=== PATIENT | male | born 1940 | race Caucasian/White ===

== ENCOUNTER 2016-10-03 08:38 | Emergency (ER) | payer MEDICARE ==
[~2016-10-03] VITALS: Ht 177.8 cm; Wt 120.5 kg
[~2016-10-03 08:38] MED LIST: IBUP800T28 PO; METF750T2 PO; METO-272 PO; SIMV40TA5 PO; WARF5TAB7 PO; WARF6TAB6 PO
[2016-10-03 08:49] VITALS: BP 129/79; RESP 16; O2SAT 97
--- NOTE | 2016-10-03 10:26 | PCM.EDPN ---
ED Note Date of Service October 03, 2016 ED Attending Statement I signed up for patient immediately on arrival to my shift. I went to the room the patient had eloped prior to being evaluated. Juan Guerra MD October 03, 2016 10:26
== END 2016-10-03 09:05 | disposition left against medical advice (07) ==
LOC: SED 08:38
DX: R06.02 Shortness of breath (principal); Z53.21 Procedure and treatment not carried out due to patient leaving prior to being seen by health care provider